=== PATIENT | male | born 1940 | race African-American/Black ===

== ENCOUNTER → 2018-05-10 | Outpatient (CLI) | payer MEDICARE, BC ==
[~2018-05-10] MED LIST: GLIPIZIDE; LISINOPRIL; METFORMIN
== END | disposition home or self-care (01) ==
LOC: US 08:41
PROVIDERS: ATTEND Internal Medicine Nephrology
DX: N28.1 Cyst of kidney, acquired (principal); E11.22 Type 2 diabetes mellitus with diabetic chronic kidney disease; N18.3 Chronic kidney disease, stage 3 (moderate)
CPT/HCPCS: 76770

== ENCOUNTER → 2020-08-20 | Outpatient (CLI) | payer MEDICARE, BC ==
[~2020-08-20] MED LIST changes: +APIX5TAB PO; +ASPI-1497 PO; +DILT240C96 PO; +DILT30TA3 PO; +GABA-531 PO; +HYDR1POW18 MC; +HYDR25TA PO; +LATA2.5D2 EACHEYE; +METF-414 PO; +METH50TA5 PO; +PRED5DRO22 EACHEYE; +SITA50TA3 PO
== END | disposition home or self-care (01) ==
LOC: LAB 11:45
PROVIDERS: ATTEND Ophthalmology
DX: Z01.812 Encounter for preprocedural laboratory examination (principal)
CPT/HCPCS: C9803; U0003

== ENCOUNTER 2020-08-24 07:57 | Day surgery (SDC) | payer MEDICARE, BC ==
[~2020-08-24] VITALS: Ht 185.4 cm; Wt 81.6 kg
[~2020-08-24 07:57] MED LIST changes: -APIX5TAB PO; +BALANCED SALT IRRIG SOLN COMB1 500ML OP ONE; -DILT240C96 PO; -GABA-531 PO; -HYDR25TA PO; -LATA2.5D2 EACHEYE; -METH50TA5 PO; +PHENYLEPHRINE HCL 10% OPHTH DROPS 5ML LEFTEYE ONE; -PRED5DRO22 EACHEYE; -SITA50TA3 PO; +TROPICAMIDE 1% OPHTH DROPS 15ML LEFTEYE ONE
[2020-08-24] MEDS ORDERED: LACTATED RINGERS 1,000 ML IV SCH (08:00)
[2020-08-24] MEDS ORDERED: TETRACAINE 0.5% OPHTH DROPS 4ML ONE (08:00)
[2020-08-24] MEDS ORDERED: CIPROFLOXACIN 0.3% OPHTH SOLN 2.5ML ONE (08:00)
[2020-08-24] MEDS ORDERED: ACETYLCHOLINE CHLORIDE INTRAOCULAR SOLUTION 1:100 ELECTROLYTE DILUENT IO ONE (08:00)
[2020-08-24] MEDS ORDERED: LIDOCAINE HCL 2%/EPINEPHRINE 1:100,000 20 ML VIAL INFIL ONE (08:00)
[2020-08-24] MEDS ORDERED: BALANCED SALT IRRIG SOLN 15ML ONE (08:00)
[2020-08-24] MEDS ORDERED: PREDNISOLONE ACETATE 1% OPHTH DROPS 5ML ONE (08:00)
[2020-08-24] MEDS ORDERED: NEO/POLYMYX B SULF/DEXAMETH OPHTH OINT 3.5GM ONE (08:00)
[2020-08-24] MEDS ORDERED: BUPIVACAINE HCL/PF 0.75% (7.5MG/ML) 10ML ONE (08:00)
[2020-08-24] MEDS ORDERED: PRED5DRO22 EACHEYE (09:17)
[2020-08-24] MEDS ORDERED: APIX5TAB PO (09:17)
[2020-08-24] MEDS ORDERED: LATA2.5D2 EACHEYE (09:17)
[2020-08-24] MEDS ORDERED: SITA50TA3 PO (09:17)
[2020-08-24] MEDS ORDERED: DILT240C96 PO (09:17)
[2020-08-24] MEDS ORDERED: HYDR25TA PO (09:17)
[2020-08-24] MEDS ORDERED: GABA-531 PO (09:17)
[2020-08-24] MEDS ORDERED: METH50TA5 PO (09:17)
[2020-08-24] MEDS ORDERED: HYALURONATE SODIUM 10 MG/ML 0.55ML SYRINGE IO ONE (09:53)
[2020-08-24] MEDS ORDERED: FENTANYL CITRATE/PF 50MCG/ML 2ML VIAL ONE (10:07)
[2020-08-24] MEDS ORDERED: MIDAZOLAM HCL 2 MG/2 ML VIAL ONE (10:07)
== END 2020-08-24 13:07 | disposition home or self-care (01) ==
LOC: OR 07:57
PROVIDERS: ATTEND Ophthalmology
DX: E11.36 Type 2 diabetes mellitus with diabetic cataract (principal); H25.89 Other age-related cataract; I11.0 Hypertensive heart disease with heart failure; I50.9 Heart failure, unspecified; Z79.01 Long term (current) use of anticoagulants; Z79.899 Other long term (current) drug therapy; Z79.84 Long term (current) use of oral hypoglycemic drugs; Z98.890 Other specified postprocedural states; Z72.89 Other problems related to lifestyle
CPT/HCPCS: 66982; 82962; J2250; J3010; J3490; V2632